=== PATIENT | male | born 1945 | race Caucasian/White ===

== ENCOUNTER 2020-01-04 08:00 | Outpatient (CLI) | payer MEDICARE, SELFPAY ==
--- NOTE | 2020-01-04 08:46 | ECG_ITS ---
Measurements Intervals [place] Rate: 89 P: 51 MS: 167 QRS: 19 QRSD: 108 T: 28 QT: 365 QTc: 446 Interpretive Statements SINUS RHYTHM ATRIAL PREMATURE COMPLEX POOR R WAVE PROGRESSION, ANTERIOR LEADS INFERIOR INFARCT, AGE INDETERMINATE BASELINE ARTIFACT- I, II, III, AVR, AVL, AVF ABNORMAL ECG Electronically Signed On 01-04-2020 9:19:57 CDT by Heriberto Adame D.O.
[2020-01-04 09:07] LABS: Basophils Absolute Auto 0.1 K/mm3 (0.0-0.1); Basophils Percent Auto 0.8 % (0.2-1.2); Eosinophils Absolute Auto 0.3 K/mm3 (0-0.3); Eosinophils Percent Auto 4.1 % (0-4.4); Immature Granulocyte Absolute 0.01 K/mm3 (0.00-0.031); Immature Granulocyte Percent A 0.2 % (0-0.5); Lymphocytes Absolute Auto 1.85 K/mm3 (0.9-3.2); Mean Corpuscular HGB Conc 35.6 g/dl (32-36); Mean Corpuscular Hemoglobin 33.3 pg (26-34); Mean Corpuscular Volume 93.6 fl (80-100); Mean Platelet Volume 8.7 fl (7.4-10.4); Monocytes Absolute Auto 0.7 K/mm3 (0.1-0.6); Monocytes Percent Auto 10.6 % (2.6-8.5); Neutrophils Absolute Auto 3.4 K/mm3 (1.3-6.7); Neutrophils Percent Auto 54.3 % (45.5-73.1); Platelet Count Result 258 k/mm3 (150-375); Red Blood Count 4.81 M/mm3 (4.6-6.20); Red Cell Distribution Width 12.5 % (11.5-14.5); White Blood Count 6.2 K/mm3 (4.5-10.0)
[2020-01-04 09:16] LABS: Urine Cotinine NEGATIVE
[2020-01-04 09:17] LABS: Hemoglobin A1C 5.7 % (<5.7)
[2020-01-04 09:18] LABS: Albumin Level 4.7 g/dL (3.5-5.1)
[2020-01-04 09:21] LABS: Blood Urea Nitrogen 27 mg/dL (9-20); Calcium 10.8 mg/dL (8.4-10.2); Carbon Dioxide 32 mmol/L (22-30); Chloride 97 mmol/L (98-107); Estimated Glomerular Filt Rate 35; Glucose 113 mg/dL (75-110); Potassium 3.5 mmol/L (3.4-5.0); Sodium 137 mmol/L (137-145)
== END 2020-01-04 08:01 | disposition home or self-care (01) ==
LOC: ANHSURGERY 08:02
PROVIDERS: Anesthesiology; PCP Family Medicine; Visit Provider Orthopaedic Surgery
DX: Z01.818 Encounter for other preprocedural examination (principal); M16.11 Unilateral primary osteoarthritis, right hip; Z79.899 Other long term (current) drug therapy; I49.1 Atrial premature depolarization
CPT/HCPCS: 36415; 80048; 80307; 82040; 83036; 85025; 87081; 93005

== ENCOUNTER 2020-01-21 08:49 | Emergency (ER) | payer MEDICARE, SELFPAY ==
--- NOTE | ~2020-01-21 | XR_ITS ---
EXAMINATION: XR ankle LT min 3V, XR foot LT min 3V EXAM DATE: 01/21/2020 09:15 INDICATION: No known recent injury provided at this time. Pain of the left foot, ankle. TECHNIQUE: Left foot dorsoplantar, lateral and oblique projections obtained and reviewed. Left ankle frontal, lateral and oblique projections obtained and reviewed. There is no prior study for compari son. FINDINGS: Left metatarsal bones unremarkable. The left ankle mortise appears intact. Small infer ior calcaneal spur. There are no acute fractures or dislocations identified. There is no subcutaneou s gas. Mild vascular calcifications, arteriosclerosis. There are no radiopaque foreign bodies. The re is mild to moderate 1st MTP primary osteoarthritis. IMPRESSION: 1. 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 2. Small inferior calcaneal spur. Reviewed, dictated and finalized at location B. IMPRESSION: 1. 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 2. Small inferior calcaneal spur.
--- NOTE | 2020-01-21 08:51 | ED.LOWEXIN ---
HPI - Extremity Injury (Lower) General Chief Complaint: Extremity Injury, Lower Stated Complaint: Left foot pain Time Seen by Provider: 01/21/20 08:51 Source: patient Mode of arrival: ambulatory Limitations: no limitations History of Present Illness HPI Narrative: Patient is a 74-year-old male with a history of arthritis who presents to the emergency department for evaluation of left ankle and foot pain. Patient reports pain only occurs with movement. He states he is having decreased movement with flexion and extension due to pain. Mild swelling yesterday, no swelling today. No bruising. No recent falls or injury, but patient states he was outside working in the yard yesterday and because of some right sided hip pain, he often favors the left leg and is concerned he may have caused a stress fracture. No worsening hip pain in the left hip or knee pain. No calf swelling, redness or tenderness. No history of DVT. No recent travel. No fever, chest pain or abdominal pain. Related Data Home Medications Medication Instructions Recorded Confirmed aspirin 81 mg tablet,delayed 81 mg PO HS 06/17/19 01/05/20 release atorvastatin 40 mg PO HS 01/04/20 01/05/20 Allergies Allergy/AdvReac Type Severity Reaction Status Date / Time No Known Allergies Allergy Verified 01/21/20 09:02 Review of Systems Review of Systems: Narrative: CONSTITUTIONAL: Denies fever CARDIOVASCULAR: Denies chest pain RESPIRATORY: Denies cough or dyspnea. GASTROINTESTINAL: Denies abdominal pain SKIN: Denies rash, denies redness MUSCULOSKELETAL: Denies back pain, reports left foot and ankle pain, resolved at rest NEUROLOGIC: Denies headache PMFSH Past Medical History Medical History Arthritis BPH (benign prostatic hyperplasia) Bronchitis Diabetes A1c 6.9 on 08-11-19 Erectile dysfunction HLD (hyperlipidemia) HTN (hypertension) AUBREE on CPAP Sleep apnea Surgical History Surgical History H/O bilateral cataract extraction H/O colonoscopy H/O cystoscopy History of back surgery History of carpal tunnel release History of facial surgery History of left hip replacement Social History Social History Smoking status: Never smoker Second hand tobacco smoke exposure: No Alcohol intake: current Drinks per week: 1 Substance use: never Substance use type: does not use Gender identity (if verbalized by the patient): Male Exam Narrative: Exam Narrative: GENERAL: Awake, alert, conversant HEAD: Normocephalic, atraumatic. EYES: PERRLA and EOMI. ENT: Nares clear, no rhinorrhea or epistaxis. Mucous membranes moist. NECK: Supple. CHEST: No respiratory distress, breathing even and non labored HEART: Regular rate, sinus rhythm ABDOMEN:Non distended, non tender EXTREMITIES: Normal range of motion. No edema. Full flexion and extension in the left ankle although this does elicit pain in the dorsum of the foot. No bruising. Dorsalis pedis pulse is 2+ on the left. Intact sensation medial and laterally. No ankle joint effusion. No medial or lateral tenderness. No calf tenderness. No edema. No deformity. SKIN: Warm, dry, no rash. NEURO:No focal deficits. Alert and oriented x3 Course Vital Signs Vital signs: Vital Signs Pulse Rate 78 01/21/20 08:56 Respiratory Rate 20 01/21/20 08:56 Blood Pressure 163/87 H 01/21/20 08:56 Pulse Oximetry 98 01/21/20 08:56 Pulse Rate 78 01/21/20 08:56 Respiratory Rate 20 01/21/20 08:56 Blood Pressure 163/87 H 01/21/20 08:56 Pulse Oximetry 98 01/21/20 08:56 MDM - Extremity Injury (Lower) MDM Narrative Medical decision making narrative: Patient presenting for evaluation of pain in his left foot and ankle that occurs only with movement after working outside yesterday. Patient states he typically favors the left leg d
[2020-01-21 08:56] VITALS: BP 163/87; PULSE 78; RESP 20; O2SAT 98
[2020-01-21 10:41] VITALS: BP 126/74; PULSE 68; RESP 20; O2SAT 98
== END 2020-01-21 10:45 | disposition home or self-care (01) ==
PROVIDERS: Emergency Provider Emergency Medicine; PCP Family Medicine
DX: M19.072 Primary osteoarthritis, left ankle and foot (principal); N40.0 Benign prostatic hyperplasia without lower urinary tract symptoms; E11.9 Type 2 diabetes mellitus without complications; E78.5 Hyperlipidemia, unspecified; I10 Essential (primary) hypertension; G47.33 Obstructive sleep apnea (adult) (pediatric); Z79.82 Long term (current) use of aspirin; Z98.42 Cataract extraction status, left eye; Z98.41 Cataract extraction status, right eye; Z96.642 Presence of left artificial hip joint; M77.32 Calcaneal spur, left foot
CPT/HCPCS: 73610; 73630; 99283

== ENCOUNTER → 2021-09-18 12:13 | Outpatient (CLI) | payer MEDICARE, SELFPAY ==
--- NOTE | ~2021-09-18 | XR_ITS ---
EXAMINATION: XR lumbar spine 2-3V DATE: 09/18/2021 13:18 INDICATION: Right-sided low back pain TECHNIQUE: Anteroposterior and lateral views of the lumbar spine, and cone-down lateral view of the l umbosacral junction were obtained. COMPARISON: None. FINDINGS: There is no fracture, dislocation, or subluxation. There is severe loss of intervertebral d isc space height at L5-S1, moderate loss of disc space height at L4-5, and mild loss of disc space he ight throughout the remainder of the lumbar spine. The vertebral body heights are maintained. Moderat e multilevel facet osteoarthritis is present. Small degenerative osteophytes project from the anterio r endplates of multiple vertebral bodies. Calcified atherosclerosis is noted. There are changes of bi lateral total hip arthroplasty. IMPRESSION: 1. Severe lumbar spondylosis without acute findings. Reviewed, dictated and finalized at location F. [employer]
== END ==
PROVIDERS: PCP Family Medicine; Visit Provider Nurse Practitioner Family
DX: M47.896 Other spondylosis, lumbar region (principal)
CPT/HCPCS: 72100

== ENCOUNTER 2021-10-02 09:39 | Outpatient (CLI) | payer MEDICARE, SELFPAY ==
--- NOTE | ~2021-10-02 | MR_ITS ---
EXAMINATION: MR lumbar spine wo [facility] EXAM DATE: 10/02/2021 10:37 INDICATION: M54.40 - Lumbago with sciatica, unspecified side. TECHNIQUE: Multi-sequential, multiplanar MR images of the lumbar spine were obtained without contrast . Sagittal T1, T2, T2 fat saturation images. Axial T2 weighted images. Comparison is made to prior examination from 07/11/2011. FINDINGS: There is moderate to severe loss of the L5-S1 disc height, moderate at L4-5 and mild at the other thoracolumbar levels. The conus medullaris terminates at the L1/2 level and has normal signal intensity and morphology, redundancy of nerve roots below the severely stenotic L3-4 level. Paraspin al soft tissue is unremarkable. There is 4 mm retrolisthesis L5 on S1, 3 mm retrolisthesis L4 on L5. There are no focal marrow signal abnormalities suspicious for malignancy or acute fracture. Level by level evaluation: T12-L1: Disc does not extend beyond the endplate margin. Facet arthropathy: Mild. Neural foraminal stenosis: No stenosis. Central canal stenosis: No stenosis. L1-L2: There is a mild diffuse disc bulge. Facet arthropathy: Mild. Neural foraminal stenosis: No stenosis. Central canal stenosis: No stenosis. L2-L3: There is a moderate diffuse disc bulge. Facet arthropathy: Moderate. Neural foraminal stenosis: Mild to moderate bilateral. Central canal stenosis: Mild to moderate. L3-L4: There is a large diffuse disc bulge. Facet arthropathy: Severe . Ligamentum flavum enlargement. Neural foraminal stenosis: Moderate left, mild to moderate right. Central canal stenosis: Severe. L4-L5: There is a large diffuse disc bulge. Facet arthropathy: Moderate to severe. Neural foraminal stenosis: Moderate to severe bilateral. Central canal stenosis: Moderate. Probable prior left hemilaminotomy. L5-S1: There is a moderate to large diffuse disc bulge. Facet arthropathy: Moderate to severe right, moderate left. Neural foraminal stenosis: Moderate right, mild to moderate left. Central canal stenosis: Mild. There is impression spondylosis compared to 2011. IMPRESSION: 1. L3-4 severe facet arthropathy, severe central canal stenosis. 2. Progression of moderate to severe lumbar spondylosis. Reviewed, dictated and finalized at location A. [employer]
== END 2021-10-02 09:40 | disposition home or self-care (01) ==
LOC: ANHIMG 09:44
PROVIDERS: PCP Family Medicine; Visit Provider Nurse Practitioner Family
DX: M54.40 Lumbago with sciatica, unspecified side (principal); M47.896 Other spondylosis, lumbar region
CPT/HCPCS: 72148

== ENCOUNTER → 2023-07-18 14:41 | Outpatient (CLI) | payer MEDICARE, SELFPAY ==
--- NOTE | ~2023-07-18 | MR_ITS ---
EXAMINATION: MR lumbar spine wo con DATE: 07/18/2023 15:10 INDICATION: Low back pain. TECHNIQUE: Magnetic resonance imaging (MRI) of the lumbar spine was performed without intravenous con trast. COMPARISON: Lumbar spine MRI 10/02/2021 FINDINGS: There is 9 degrees levocurvature of lumbar spine. There is 3 mm retrolisthesis of L4 on L5. There are Schmorl's nodes at multiple levels. There is mildly decreased disc height at L2-L3 and L3- L4 and severely decreased disc height at L4-L5 and L5-S1. The distal spinal cord signal intensity is normal. The conus medullaris is at L1. There is clumping of the cauda equina, consistent with arachno iditis. The following disc levels are specifically discussed: L1-L2: The disc is bulging. There is mild bilateral facet joint osteoarthritis. There is mild bilater al neural foraminal stenosis. There is mild central canal stenosis. L2-L3: The disc is bulging. There is severe right and moderate left facet joint osteoarthritis. There is mild bilateral neural foraminal stenosis. There is mild central canal stenosis. L3-L4: The disc is bulging. There is severe bilateral facet joint osteoarthritis. There is moderate b ilateral neural foraminal stenosis. There is severe central canal stenosis. L4-L5: The disc is bulging and has an annular fissure. There is severe bilateral facet joint osteoart hritis. There is moderate bilateral neural foraminal stenosis. There is mild central canal stenosis a t the midline. There is severe stenosis of right lateral recess. L5-S1: The disc is bulging and has an annular fissure. There is severe bilateral facet joint osteoart hritis. There is mild bilateral neural foraminal stenosis. There is mild central canal stenosis. IMPRESSION: 1. Severe lumbar spondylosis, stable from 10/02/2021. 2. Arachnoiditis, new from 10/02/2021. Reviewed, dictated and finalized at location E. [employer]
== END ==
PROVIDERS: PCP Neurological Surgery; Visit Provider Neurological Surgery
DX: M47.896 Other spondylosis, lumbar region (principal); G03.9 Meningitis, unspecified
CPT/HCPCS: 72148

== ENCOUNTER 2023-11-18 08:43 | Outpatient (CLI) | payer MEDICARE, SELFPAY ==
--- NOTE | ~2023-11-18 | XR_ITS ---
EXAMINATION: XR lumbar spine 2-3V DATE: 11/18/2023 09:17 INDICATION: Encounter for other specified surgical aftercare. TECHNIQUE: 2 views of lumbar spine were obtained. COMPARISON: None. FINDINGS: There is 8 degrees dextrocurvature of lumbar spine. There are changes of anterior and poste rior fusion procedures from L3 to L5 with interbody devices and pedicle screws. There is mild chronic anterior wedging of T12 and L1 vertebral bodies. There is mildly decreased disc height at L2-L3 and severely decreased disc height at L5-S1. There is multilevel facet joint osteoarthritis, severe in lo wer lumbar spine. There are bilateral total hip arthroplasties. IMPRESSION: 1. Severe lumbar spondylosis. 2. Anterior and posterior fusion procedures from L3 to L5. Reviewed, dictated and finalized at location E.
== END 2023-11-18 08:44 ==
LOC: MICIMG 08:45
PROVIDERS: PCP Neurological Surgery; Visit Provider Neurological Surgery
DX: Z48.89 Encounter for other specified surgical aftercare (principal); M47.896 Other spondylosis, lumbar region; Z98.1 Arthrodesis status
CPT/HCPCS: 72100

== ENCOUNTER 2023-12-17 09:58 | Outpatient (CLI) | payer MEDICARE, SELFPAY ==
--- NOTE | ~2023-12-17 | XR_ITS ---
XR lumbar spine 2-3V DATE: 12/17/2023 10:18 INDICATION: Postoperative re-check TECHNIQUE: Standing AP and lateral and cone-down lateral lumbosacral views COMPARISON: 11/18/2023 lumbar spine FINDINGS: Osteopenia. Mild thoracolumbar levoscoliosis. Status post lumbar laminectomy and interbody and posterior surgical fusion at L3-L5. Hardware appears intact without fracture or displacement. Chronic minimal anterior wedging of L1. Moderate degenerative disc disease at L1-2, L2-3 and severe d egenerative disease at L5-S1. The sacroiliac joints are intact. Status post bilateral total hip arthroplasty. Extensive calcification of the abdominal aorta and iliac arteries, without evidence of abdominal aort ic aneurysm. IMPRESSION: No significant change since November 18, 2023 Reviewed, dictated and finalized at location B.
== END 2023-12-17 09:59 ==
PROVIDERS: PCP Neurological Surgery; Visit Provider Neurological Surgery
DX: Z98.1 Arthrodesis status (principal)
CPT/HCPCS: 72100

== ENCOUNTER 2024-02-10 10:29 | Outpatient (CLI) | payer MEDICARE, SELFPAY ==
--- NOTE | ~2024-02-10 | XR_ITS ---
3 VIEWS LUMBAR SPINE Ordering provider: Mark Arizmendi, History: . s/p L3-5 decom flores, discectomies/pos lum inter fus . Comparison: December 17, 2023 FINDINGS: VERTEBRAL BODIES:Postoperative changes in the lower lumbar area. No visible fracture or subluxation. Degenerative changes of the spine. DISK SPACES: Disc spacers at the level of L5-L4 and L4-L5. Narrowing of L1-L2 and L2-L3. SOFT TISSUES: Vascular calcifications. Bilateral hip arthroplasty. Bilateral sacroiliacs. IMPRESSION: No acute osseous abnormality lumbar spine. Reviewed, dictated and finalized at location A.
== END 2024-02-10 10:30 ==
LOC: MICIMG 10:32
PROVIDERS: PCP Family Medicine; Visit Provider Neurological Surgery
DX: Z98.1 Arthrodesis status (principal)
CPT/HCPCS: 72100